=== PATIENT | male | born 1980 | race American Indian/Alaskan Native ===

== ENCOUNTER 2016-07-24 13:11 | Inpatient (IN) | payer OTHER ==
[2016-07-24] MEDS ORDERED: XOPENEX IH ONE ×2 (13:28→14:14)
[2016-07-24] MEDS ORDERED: NACL 0.9% NEBU ONE ×2 (13:34→14:33)
--- NOTE | 2016-07-24 14:54 | History and Physical Report ---
History of Present Illness Chief complaint: I cant breathe . History of present illness: 36 YO Male with Nicotine Depencence, Asthma-moderate persistent presents to ED for evaluation. Pt states that he has experienced shortness of breath for the week with worsening symptoms over the past 8 hours. Pt has been using his inhaler 4-6 times daily without relief. Pt denies fever, chills, CP, Palpitations, NVD, syncope, productive cough, or recent ill contacts Past History Past Medical History: other (asthma, nicotine dependence) Past Surgical History: No surgical history, Other (reviewed) Social history: single, smoking. denies: alcohol abuse, prescription drug abuse , IV drug use Family history: diabetes, hypertension Medications and Allergies Allergies Allergy/AdvReac Type Severity Reaction Status Date / Time No Known Allergies Allergy Verified 07/24/16 13:37 Review of Systems All systems: negative Respiratory: shortness of breath, wheezing Exam - Constitutional Vitals: Temp Pulse Resp BP Pulse Ox 97.5 F L 118 H 16 163/102 96 07/24/16 14:36 07/24/16 14:36 07/24/16 14:36 07/24/16 14:36 07/24/16 14:37 General appearance: Present: mild distress - EENT Eyes: Present: PERRL ENT: hearing intact, clear oral mucosa - Neck Neck: Present: supple, normal ROM - Respiratory Respiratory effort: labored Respiratory: bilateral: diminished - Cardiovascular Heart Sounds: Present: S1 & S2. Absent: rub, click - Extremities Extremities: pulses symmetrical, No edema Peripheral Pulses: within normal limits - Abdominal General gastrointestinal: Present: soft, non-tender, non-distended, normal bowel sounds Male genitourinary: Present: normal - Integumentary Integumentary: Present: clear, warm, dry - Musculoskeletal Musculoskeletal: gait normal, strength equal bilaterally - Psychiatric Psychiatric: appropriate mood/affect, intact judgment & insight - Neurologic Neurologic: CNII-XII intact, moves all extremities Assessment and Plan - Patient Problems (1) Acute respiratory failure Current Visit: Yes Status: Acute Qualifiers: Respiratory failure complication: R Plan to address problem: Supplemental oxygen, nebs, aspiration precautions, supportive care, (2) Asthma exacerbation Current Visit: Yes Status: Acute Plan to address problem: supplemental oxygen, nebs, aspiration precautions, magnesium, steroids, supportive care, (3) Nicotine dependence Current Visit: Yes Status: Acute Qualifiers: Nicotine product type: N Substance use status: S Plan to address problem: Pt counseled, (4) Accelerated hypertension Current Visit: Yes Status: Acute Plan to address problem: monitor bp q shift, supportive care, (5) DVT prophylaxis Current Visit: Yes Status: Acute
[2016-07-24] MEDS ORDERED: MAGNESIUM SULFATE 2GM/50ML 2 GM/50 ML BAG IV ONE (14:55)
[2016-07-24] MEDS ORDERED: DUONEB 0.5 MG-3 MG/3 ML SOLN IH ONE ×2 (14:55→14:56)
[2016-07-24] MEDS ORDERED: NACL 0.9% 1000 ML 1,000 ML IV ONE (14:57)
--- NOTE | 2016-07-24 15:02 | Emergency Department Report ---
ED General Adult HPI - General Chief complaint: Adult Asthma Stated complaint: SOB/CHEST PAIN Source: patient Mode of arrival: Ambulatory Limitations: No Limitations - History of Present Illness Initial comments: Patient admits that he is out of his usual asthma medicine. He states he's never been admitted to the hospital before for asthma. Had persistent wheezing associated with a sensation of chest tightness. He's had an occasional cough but no real sputum production. He denies any fever or chills. He was given 2 Xopenex nebs prior to my encounter. He has persistent wheezing. -: days(s) Location: chest (tightness associated with wheezing only) Radiation: non-radiation Severity scale (0 -10): 0 Consistency: now resolved Improves with: none Worsens with: none Associated Symptoms: denies other symptoms - Related Data Allergies Allergy/AdvReac Type Severity Reaction Status Date / Time No Known Allergies Allergy Verified 07/24/16 13:37 ED Review of Systems ROS: Stated complaint: SOB/CHEST PAIN Other details as noted in HPI Constitutional: denies: chills, fever Eyes: denies: eye pain, eye discharge, vision change ENT: denies: ear pain, throat pain Respiratory: cough, shortness of breath, wheezing Cardiovascular: as per HPI, chest pain. denies: palpitations Endocrine: no symptoms reported Gastrointestinal: denies: abdominal pain, nausea, diarrhea Genitourinary: denies: urgency, dysuria Musculoskeletal: denies: back pain, joint swelling, arthralgia Skin: denies: rash, lesions Neurological: denies: headache, weakness, paresthesias Psychiatric: denies: anxiety, depression Hematological/Lymphatic: denies: easy bleeding, easy bruising ED Past Medical Hx - Past Medical History Hx Asthma: Yes - Surgical History Past Surgical History?: No - Social History Smoking Status: Current Every Day Smoker Substance Use Type: None ED Physical Exam - General Limitations: No Limitations General appearance: alert, in no apparent distress - Head Head exam: Present: atraumatic, normocephalic - Eye Eye exam: Present: normal appearance. Absent: scleral icterus - ENT ENT exam: Present: mucous membranes moist - Neck Neck exam: Present: normal inspection. Absent: tenderness, meningismus - Respiratory Respiratory exam: Present: wheezes, accessory muscle use (mild), prolonged expiratory, other (mild increased work of breathing). Absent: respiratory distress - Cardiovascular Cardiovascular Exam: Present: normal rhythm, tachycardia. Absent: systolic murmur, diastolic murmur, rubs, gallop - GI/Abdominal GI/Abdominal exam: Present: soft, normal bowel sounds. Absent: distended, tenderness, guarding, rebound, rigid - Rectal Rectal exam: Present: deferred - Extremities Exam Extremities exam: Present: normal inspection - Back Exam Back exam: Present: normal inspection - Neurological Exam Neurological exam: Present: alert, oriented X3, CN II-XII intact. Absent: motor sensory deficit - Psychiatric Psychiatric exam: Present: normal affect, normal mood - Skin Skin exam: Present: warm, dry, intact, normal color. Absent: rash ED Course Vital Signs 07/24/16 07/24/16 07/24/16 13:21 13:35 13:51 Temperature 97.5 F L Pulse Rate 118 H Pulse Rate [ 116 H 117 H Anterior Bilateral Throughout] Respiratory 22 Rate Respiratory 20 20 Rate [Anterior Bilateral Throughout] Blood Pressure 147/108 Blood Pressure [Left] O2 Sat by Pulse 97 Oximetry 07/24/16 07/24/16 07/24/16 14:35 14:36 14:37 Temperature 97.5 F L Pulse Rate 118 H Pulse Rate [ 114 H Anterior Bilateral Throughout] Respiratory 16 Rate Respiratory 20 Rate [Anterior Bilateral Throughout] Blood Pressure Blood Pressure 163/102 [Left] O2 Sat by Pulse 96 96 Oximetry 07/24/16 07/24/16 14:59 15:05 Temperature Pulse Rate Pulse Rate [ 125 H 126 H Anterior Bilateral Throughout] Respiratory Rate Respiratory 20 20 Rate [Anterior Bilateral Throughout] Blood Pressure Blood Pressure [Left] O2 Sat by Pulse Oximetry - Reevaluation(s) Reevaluation #1: Patient will be getting Solu-Medrol, mag sulfate. Additional nebs. He has moderate persistent status asthmaticus. I think he will improve. He is referred to Dr. Cummings of the hospitalist service for admission. His progress will be monitored. 07/24/16 15:01 ED Medical Decision Making - EKG Data -: EKG Interpreted by Me EKG shows normal: sinus rhythm, axis, intervals, QRS complexes, ST-T waves Rate: tachycardia - EKG Data Interpretation: no acute changes Critical care attestation.: If time is entered above; I have spent that time in minutes in the direct care of this critically ill patient, excluding procedure time. ED Disposition Clinical Impression: Status asthmaticus Qualifiers: Asthma severity: moderate persistent Qualified Code(s): J45.42 - Moderate persistent asthma with status asthmaticus Hypertension Qualifiers: Hypertension type: unspecified secondary hypertension Qualified Code(s): I15.9 - Secondary hypertension, unspecified; I15 - Secondary hypertension Disposition: OP ADMIT IP TO THIS HOSP Is pt being admited?: Yes Does the pt Need Aspirin: Yes Condition: Stable Instructions: Hypertension (ED) Referrals: PRIMARY CARE, [Primary Care Provider] - 3-5 Days Time of Disposition: 15:31
[2016-07-24] MEDS ORDERED: DULCOLAX PR PRN (15:09)
[2016-07-24] MEDS ORDERED: TYLENOL PO PRN (15:09)
[2016-07-24] MEDS ORDERED: MILK OF MAGNESIA PO PRN (15:09)
[2016-07-24] MEDS ORDERED: ZOFRAN IV PRN (15:09)
[2016-07-24] MEDS ORDERED: BABY ASPIRIN PO ONE (15:32)
[2016-07-24 15:45] LABS: Basophils % (Auto) 0.6 % (0.0-1.8); Hematocrit 43.6 % (35.5-45.6); Hemoglobin 14.2 gm/dl (11.8-15.2); Mean Corpuscular HGB Conc 33 % (32-34); Mean Corpuscular Volume 79 fl (84-94); Platelet Count 187 K/mm3 (140-440); Red Blood Count 5.56 M/mm3 (3.65-5.03); Red Cell Distribution Width 14.8 % (13.2-15.2); White Blood Count 5.8 K/mm3 (4.5-11.0)
[2016-07-24 15:52] LABS: Creatine Kinase MB 12.9 ng/mL (0.0-4.0)
[2016-07-24 15:54] LABS: Alanine Aminotransferase 21 units/L (7-56); Albumin 4.6 g/dL (3.9-5); Albumin/Globulin Ratio 1.2 %; Alkaline Phosphatase 62 units/L (35-129); Anion Gap 21 mmol/L; BUN/Creatinine Ratio 8.88; Blood Urea Nitrogen 8 mg/dL (9-20); Calcium 9.1 mg/dL (8.4-10.2); Carbon Dioxide 26 mmol/L (22-30); Chloride 97.6 mmol/L (98-107); Creatine Kinase 590 units/L (55-170); Glucose 122 mg/dL (75-100); Potassium 3.9 mmol/L (3.6-5.0); Sodium 141 mmol/L (137-145); Total Protein 8.3 g/dL (6.3-8.2)
[2016-07-24 15:55] LABS: Bilirubin,Direct < 0.2 mg/dL (0-0.2); Bilirubin,Indirect 0.4 mg/dL
[2016-07-24 16:03] LABS: INR 1.04 (0.87-1.13); Partial Thromboplastin Time 29.6 Sec. (24.2-36.6)
[2016-07-24] MEDS: ZITHROMAX 500 MG in NACL 0.9% 250ML 250 ML IV SCH ×2 (17:00→20:08)
[2016-07-24 17:01] LABS: Mean Corpuscular Hemoglobin 26 pg (28-32)
--- NOTE | 2016-07-24 17:12 | Admit Criteria Form ---
Admission Criteria Documentation: ASTHMA Clinical Indications for Admission to Inpatient Care (Place 'X' for any and all applicable criteria): Admission is indicated for ANY ONE of the following (1)(2)(3)(4)(5): [ ]I. Absent or markedly diminished breath sounds (silent chest) [ ]II. Oxygen saturation < 92% [ ]III. PaCO2 = / > 42 mm Hg (5.6 kPa) [ ]IV. Peak expiratory flow rate < 40% of predicted or personal best after treatment. [ ]V. Peak expiratory flow rate < 33% of predicted or personal before after treatment [ ]. Change in mental status [ ]VII. Ventilatory support required [ ]VIII. PaO2 < 60 mm Hg (8.0 kPa) [ ]IX. Cyanosis [ ]X. Cardiac dysrhythmia (e.g., bradycardia) [ ]XI. Hemodynamic instability [ ]XII. Radiographic evidence of complication requiring inpatient treatment (e.g., pneumonia, pneumothorax) [X ]XIII. Inpatient admission required rather than observation care (also use Asthma: Observation Care guideline as appropriate) because of ANY ONE of the following: [ ]a) Respiratory finding that is severe or persistent (eg, dyspnea, tachypnea, accessory muscle use) [ ]b) Airflow measurements less than 60% of predicted or personal best that persist (e.g., over 24 hours) or worsen despite treatments [X ]c) Supplemental oxygen or respiratory treatments for over 24 hours that are performable only in acute inpatient setting [ ]d) Other condition, treatment or monitoring requiring inpatient admission. Extended stay beyond goal length of stay may be needed for (26)(27)(28): [ ]a) Severe respiratory failure (23) (29) (30) [ ]b) Secondary causes and complications (25) [ ]c) Status asthmaticus [ ]d) Chronic obstructive asthma [ ]e) Older patients (29) [ ]f) Slow resolution [ ]g) Clinically significant exacerbation of comorbidities (eg, jarret. heart failure, atrial fibrillation) The original [employer] content created by [employer] has been revised. The portions of the content which have been revised are identified through the use of italic text or in bold, and [employer] has neither reviewed nor approved the modified material. All other unmodified content is copyright [employer] Please see references footnoted in the original [facility] edition 2016 Admission Criteria Met: Yes
[2016-07-24 18:48] LABS: ISTAT Base Excess 1; ISTAT HCO3 26.6; ISTAT PCO2 46.3 (35-45); ISTAT PH 7.367 (7.35-7.45); ISTAT PO2 94 (80-105); ISTAT SO2 97; ISTAT TCO2 28
[2016-07-24] MEDS: XOPENEX IH PRN (20:24)
[2016-07-24] MEDS: ATROVENT IH PRN (20:24)
[2016-07-25] MEDS: XOPENEX IH PRN ×2 (00:05→07:47)
[2016-07-25] MEDS: ATROVENT IH PRN ×2 (00:05→07:47)
[2016-07-25] MEDS ORDERED: MAGNESIUM SULFATE 2GM/50ML 2 GM/50 ML BAG IV ONE (00:22)
--- NOTE | 2016-07-25 07:30 | XRay Report ---
AP CHEST: HISTORY: Hypertension There is mild hyperinflation versus good inspiration. AP view of the chest demonstrates a normal mediastinal and cardiac contour with clear lungs and normal bony and soft tissue structures. IMPRESSION: Mild hyperinflation. No acute process.
[2016-07-25] MEDS ORDERED: WATER FOR INJ (PF) 10 ML ONE ×2 (10:39→18:39)
--- NOTE | 2016-07-25 11:29 | Progress Note ---
Assessment and Plan Assessment and plan: 36-year-old man with a history of mild intermittent asthma, which is exacerbated by his seasonal allergies who presented to the ER complaining of shortness of breath over the week and has been progressive and worsening. Lack of relief using his inhalers.He states that inhalers usually "do the trick" for him, and that he has not been hospitalized for asthma since childhood. Acute hypoxic respiratory failure Respiratory therapy notes reviewed, patient was 88% on room air today, continue oxygen supplementation, continue treatment for asthma exacerbation Asthma exacerbation Continue supplemental oxygen nebulizers, steroids, seasonal allergy allergy meds ordered Nicotine dependence Patient has been strongly counseled about the dangers of tobacco abuse, and that his asthma is unlikely to be well controlled to continue smoking, states that he only smokes socially and that he does not need nicotine patch Accelerated hypertension Blood pressure was most likely elevated due to acute illness, blood pressure is trending down. No need for blood pressure meds at this time DVT prophylaxis Early ambulation History Interval history: He continues to have shortness of breath, wheezing and some nonproductive cough. Has severe dyspnea on exertion Hospitalist Physical - Physical exam Narrative exam: General: Unable to speak in full sentences HEENT: MMM, EOMI cardiac: S1-S2 heard lungs: Expiratory wheezing, rhonchorous breath sounds abdomen: soft, nontender, nondistended bowel sounds positive extremities: no edema clubbing or cyanosis Skin: no rash or lesion Neuro: no focal deficit Psych: appropriate behavior and mood, cognition intact - Constitutional Vitals: Temp Pulse Resp BP Pulse Ox 98.1 F 113 H 20 142/96 99 07/25/16 07:53 07/25/16 07:53 07/25/16 07:53 07/25/16 07:53 07/25/16 09:44 General appearance: Present: mild distress Results - Labs CBC & Chem 7: 07/24/16 15:13 07/24/16 15:13 Labs: Laboratory Last Values WBC 5.8 K/mm3 (4.5-11.0) 07/24/16 15:13 RBC 5.56 M/mm3 (3.65-5.03) H 07/24/16 15:13 Hgb 14.2 gm/dl (11.8-15.2) 07/24/16 15:13 Hct 43.6 % (35.5-45.6) 07/24/16 15:13 MCV 79 fl (84-94) L 07/24/16 15:13 MCH 26 pg (28-32) L 07/24/16 15:13 MCHC 33 % (32-34) 07/24/16 15:13 RDW 14.8 % (13.2-15.2) 07/24/16 15:13 Plt Count 187 K/mm3 (140-440) 07/24/16 15:13 Lymph % (Auto) 18.9 % (13.4-35.0) 07/24/16 15:13 [place] % (Auto) 11.6 % (0.0-7.3) H 07/24/16 15:13 Eos % (Auto) 5.0 % (0.0-4.3) H 07/24/16 15:13 Baso % (Auto) 0.6 % (0.0-1.8) 07/24/16 15:13 Lymph # 1.1 K/mm3 (1.2-5.4) L 07/24/16 15:13 [place] # 0.7 K/mm3 (0.0-0.8) 07/24/16 15:13 Eos # 0.3 K/mm3 (0.0-0.4) 07/24/16 15:13 Baso # 0.0 K/mm3 (0.0-0.1) 07/24/16 15:13 Seg Neutrophils % 63.9 % (40.0-70.0) 07/24/16 15:13 Seg Neutrophils # 3.7 K/mm3 (1.8-7.7) 07/24/16 15:13 PT 13.5 Sec. (12.2-14.9) 07/24/16 15:13 INR 1.04 (0.87-1.13) 07/24/16 15:13 APTT 29.6 Sec. (24.2-36.6) 07/24/16 15:13 POC ABG pH 7.367 (7.35-7.45) 07/24/16 18:37 POC ABG pCO2 46.3 (35-45) H 07/24/16 18:37 POC ABG pO2 94 (80-105) 07/24/16 18:37 POC ABG HCO3 26.6 07/24/16 18:37 POC ABG Total CO2 28 07/24/16 18:37 POC ABG O2 Sat 97 07/24/16 18:37 POC ABG Base Excess 1 07/24/16 18:37 FiO2 3 % 07/24/16 18:37 Sodium 141 mmol/L (137-145) 07/24/16 15:13 Potassium 3.9 mmol/L (3.6-5.0) 07/24/16 15:13 Chloride 97.6 mmol/L (98-107) L 07/24/16 15:13 Carbon Dioxide 26 mmol/L (22-30) 07/24/16 15:13 Anion Gap 21 mmol/L 07/24/16 15:13 BUN 8 mg/dL (9-20) L 07/24/16 15:13 Creatinine 0.9 mg/dL (0.8-1.5) 07/24/16 15:13 Estimated GFR > 60 ml/min 07/24/16 15:13 BUN/Creatinine Ratio 8.88 % 07/24/16 15:13 Glucose 122 mg/dL (75-100) H 07/24/16 15:13 Calcium 9.1 mg/dL (8.4-10.2) 07/24/16 15:13 Total Bilirubin 0.60 mg/dL (0.1-1.2) 07/24/16 15:13 Direct Bilirubin < 0.2 mg/dL (0-0.2) 07/24/16 15:13 Indirect Bilirubin 0.4 mg/dL 07/24/16 15:13 AST 19 units/L (5-40) 07/24/16 15:13 ALT 21 units/L (7-56) 07/24/16 15:13 Alkaline Phosphatase 62 units/L (35-129) 07/24/16 15:13 Total Creatine Kinase 590 units/L (55-170) H 07/24/16 15:13 CK-MB (CK-2) 12.9 ng/mL (0.0-4.0) H 07/24/16 15:13 CK-MB (CK-2) Rel Index 2.1 (0-4) 07/24/16 15:13 Troponin T < 0.010 ng/mL (0.00-0.029) 07/24/16 15:13 Total Protein 8.3 g/dL (6.3-8.2) H 07/24/16 15:13 Albumin 4.6 g/dL (3.9-5) 07/24/16 15:13 Albumin/Globulin Ratio 1.2 % 07/24/16 15:13
[2016-07-25] MEDS: XOPENEX IH SCH ×5 (12:13→23:58)
[2016-07-25] MEDS: ATROVENT IH SCH ×5 (12:14→23:58)
[2016-07-25] MEDS: ZITHROMAX PO SCH (15:41)
[2016-07-25] MEDS: CLARITIN PO SCH (15:41)
[2016-07-26] MEDS: XOPENEX IH SCH ×5 (04:03→20:40)
[2016-07-26] MEDS: ATROVENT IH SCH ×5 (04:03→20:39)
[2016-07-26] MEDS ORDERED: WATER FOR INJ (PF) 0 ML ONE (09:31)
[2016-07-26] MEDS: ZITHROMAX PO SCH (09:41)
[2016-07-26] MEDS: CLARITIN PO SCH (09:42)
--- NOTE | 2016-07-26 11:01 | Progress Note ---
Assessment and Plan Assessment and plan: Acute hypoxic respiratory failure Continue oxygen supplementation, continue treatment for asthma exacerbation Asthma exacerbation Continue supplemental oxygen, nebulizers and steroids seasonal allergy allergy meds ordered Nicotine dependence Patient has been strongly counseled about the dangers of tobacco abuse, and that his asthma is unlikely to be well controlled if pt. continues smoking. Accelerated hypertension Blood pressure was most likely elevated due to acute illness, blood pressure is trending down. No need for blood pressure meds at this time DVT prophylaxis Early ambulation History Interval history: No new issues overnight. Patient still with moderate dyspnea. Hospitalist Physical - Constitutional Vitals: Temp Pulse Resp BP Pulse Ox 98.3 F 104 H 18 134/75 100 07/26/16 07:34 07/26/16 09:16 07/26/16 09:16 07/26/16 07:34 07/26/16 09:13 General appearance: Present: no acute distress - EENT Eyes: Present: PERRL, EOM intact ENT: hearing intact, clear oral mucosa, dentition normal - Neck Neck: Present: supple, normal ROM - Respiratory Respiratory effort: normal Respiratory: bilateral: CTA - Cardiovascular Rhythm: regular Heart Sounds: Present: S1 & S2. Absent: gallop, rub - Extremities Extremities: no ischemia, No edema, Full ROM - Abdominal General gastrointestinal: soft, non-tender, non-distended, normal bowel sounds - Integumentary Integumentary: Present: clear, warm, dry - Neurologic Neurologic: CNII-XII intact, moves all extremities Results - Labs CBC & Chem 7: 07/24/16 15:13 07/24/16 15:13 Labs: Laboratory Last Values WBC 5.8 K/mm3 (4.5-11.0) 07/24/16 15:13 RBC 5.56 M/mm3 (3.65-5.03) H 07/24/16 15:13 Hgb 14.2 gm/dl (11.8-15.2) 07/24/16 15:13 Hct 43.6 % (35.5-45.6) 07/24/16 15:13 MCV 79 fl (84-94) L 07/24/16 15:13 MCH 26 pg (28-32) L 07/24/16 15:13 MCHC 33 % (32-34) 07/24/16 15:13 RDW 14.8 % (13.2-15.2) 07/24/16 15:13 Plt Count 187 K/mm3 (140-440) 07/24/16 15:13 Lymph % (Auto) 18.9 % (13.4-35.0) 07/24/16 15:13 [place] % (Auto) 11.6 % (0.0-7.3) H 07/24/16 15:13 Eos % (Auto) 5.0 % (0.0-4.3) H 07/24/16 15:13 Baso % (Auto) 0.6 % (0.0-1.8) 07/24/16 15:13 Lymph # 1.1 K/mm3 (1.2-5.4) L 07/24/16 15:13 [place] # 0.7 K/mm3 (0.0-0.8) 07/24/16 15:13 Eos # 0.3 K/mm3 (0.0-0.4) 07/24/16 15:13 Baso # 0.0 K/mm3 (0.0-0.1) 07/24/16 15:13 Seg Neutrophils % 63.9 % (40.0-70.0) 07/24/16 15:13 Seg Neutrophils # 3.7 K/mm3 (1.8-7.7) 07/24/16 15:13 PT 13.5 Sec. (12.2-14.9) 07/24/16 15:13 INR 1.04 (0.87-1.13) 07/24/16 15:13 APTT 29.6 Sec. (24.2-36.6) 07/24/16 15:13 POC ABG pH 7.367 (7.35-7.45) 07/24/16 18:37 POC ABG pCO2 46.3 (35-45) H 07/24/16 18:37 POC ABG pO2 94 (80-105) 07/24/16 18:37 POC ABG HCO3 26.6 07/24/16 18:37 POC ABG Total CO2 28 07/24/16 18:37 POC ABG O2 Sat 97 07/24/16 18:37 POC ABG Base Excess 1 07/24/16 18:37 FiO2 3 % 07/24/16 18:37 Sodium 141 mmol/L (137-145) 07/24/16 15:13 Potassium 3.9 mmol/L (3.6-5.0) 07/24/16 15:13 Chloride 97.6 mmol/L (98-107) L 07/24/16 15:13 Carbon Dioxide 26 mmol/L (22-30) 07/24/16 15:13 Anion Gap 21 mmol/L 07/24/16 15:13 BUN 8 mg/dL (9-20) L 07/24/16 15:13 Creatinine 0.9 mg/dL (0.8-1.5) 07/24/16 15:13 Estimated GFR > 60 ml/min 07/24/16 15:13 BUN/Creatinine Ratio 8.88 % 07/24/16 15:13 Glucose 122 mg/dL (75-100) H 07/24/16 15:13 Calcium 9.1 mg/dL (8.4-10.2) 07/24/16 15:13 Total Bilirubin 0.60 mg/dL (0.1-1.2) 07/24/16 15:13 Direct Bilirubin < 0.2 mg/dL (0-0.2) 07/24/16 15:13 Indirect Bilirubin 0.4 mg/dL 07/24/16 15:13 AST 19 units/L (5-40) 07/24/16 15:13 ALT 21 units/L (7-56) 07/24/16 15:13 Alkaline Phosphatase 62 units/L (35-129) 07/24/16 15:13 Total Creatine Kinase 590 units/L (55-170) H 07/24/16 15:13 CK-MB (CK-2) 12.9 ng/mL (0.0-4.0) H 07/24/16 15:13 CK-MB (CK-2) Rel Index 2.1 (0-4) 07/24/16 15:13 Troponin T < 0.010 ng/mL (0.00-0.029) 07/24/16 15:13 Total Protein 8.3 g/dL (6.3-8.2) H 07/24/16 15:13 Albumin 4.6 g/dL (3.9-5) 07/24/16 15:13 Albumin/Globulin Ratio 1.2 % 07/24/16 15:13
[2016-07-27] MEDS: ATROVENT IH SCH (00:05)
[2016-07-27] MEDS: XOPENEX IH SCH (00:05)
[2016-07-27] MEDS ORDERED: PROVENTIL IH PRN (00:11)
[2016-07-27] MEDS ORDERED: PROVENTIL IH SCH (08:00)
[2016-07-27] MEDS ORDERED: ATROVENT IH SCH (08:00)
[2016-07-27] MEDS: DUONEB 0.5 MG-3 MG/3 ML SOLN IH SCH ×2 (08:05→13:42)
--- NOTE | 2016-07-27 08:43 | Discharge Summary ---
Providers - Providers Date of Admission: 07/24/16 16:39 Date of discharge: 07/27/16 Attending physician: PAMELA URBAN Primary care physician: IZZY FIGUEROA MD Hospitalization Reason for admission: asthma exac Condition: Stable Hospital course: 36-year-old man with a history of mild intermittent asthma, which is exacerbated by his seasonal allergies who presented to the ER complaining of shortness of breath over the week and has been progressive and worsening. Lack of relief using his inhalers.He states that inhalers usually "do the trick" for him, and that he has not been hospitalized for asthma since childhood. Patient was hospitalized with diagnoses of acute hypoxic respiratory failure and acute asthma exacerbation. Patient was noted to have RA saturation of 88%. Patient was treated with nebulizer treatments, oxygen supplementation and steroids. Dedicated d/c time 32 minutes Disposition: DC-01 TO HOME OR SELFCARE Time spent for discharge: 32 - Discharge Diagnoses (1) Nicotine dependence Status: Acute Qualifiers: Nicotine product type: N Substance use status: S Core Measure Documentation - Palliative Care Palliative Care/ Comfort Measures: Not Applicable - Core Measures Any of the following diagnoses?: none Exam - Constitutional Vitals: Temp Pulse Resp BP Pulse Ox 97.9 F 98 H 20 114/72 94 07/27/16 07:40 07/27/16 08:12 07/27/16 08:12 07/27/16 07:40 07/27/16 08:07 General appearance: Present: no acute distress, well-nourished - EENT Eyes: Present: PERRL ENT: hearing intact, clear oral mucosa - Neck Neck: Present: supple, normal ROM - Respiratory Respiratory effort: normal Respiratory: bilateral: CTA - Cardiovascular Heart Sounds: Present: S1 & S2. Absent: rub, click - Extremities Extremities: pulses symmetrical, No edema Peripheral Pulses: within normal limits - Abdominal General gastrointestinal: Present: soft, non-tender, non-distended, normal bowel sounds Male genitourinary: Present: normal - Integumentary Integumentary: Present: clear, warm, dry - Musculoskeletal Musculoskeletal: gait normal, strength equal bilaterally - Psychiatric Psychiatric: appropriate mood/affect, intact judgment & insight - Neurologic Neurologic: CNII-XII intact, moves all extremities Plan Activity: no restrictions Weight Bearing Status: Full Weight Bearing Diet: regular Follow up with: PRIMARY CARE, [Primary Care Provider] - 3-5 Days Prescriptions: ALBUTEROL NEB's [Proventil 0.083% NEBS] 2.5 mg IH Q4HRT PRN #30 nebu PRN Reason: Shortness Of Breath Azithromycin [Zithromax TAB] 500 mg PO QDAY #5 tablet Ipratropium/Albuterol Sulfate [Duoneb 0.5 mg-3 mg/3 ml Soln] 1 ampul IH TIDRT # 30 ampul.neb Loratadine [Claritin] 10 mg PO QDAY #30 tablet oxyCODONE /ACETAMINOPHEN [Percocet 5/325] 1 tab PO Q4HR #10 tab Prednisone [predniSONE 5 mg (6-Day Pack, 21 Tabs)] 5 mg PO .TAPER #1 tab.ds.pk
[2016-07-27] MEDS ORDERED: WATER FOR INJ (PF) 10 ML ONE (09:19)
[2016-07-27] MEDS: ZITHROMAX PO SCH (09:32)
[2016-07-27] MEDS: CLARITIN PO SCH (09:32)
[2016-07-27 15:46] VITALS: BP 124/71
== END 2016-07-27 17:30 | disposition home or self-care (01) | DRG 189 ==
LOC: ED 13:11 → 3A 16:39
PROVIDERS: ADMIT Internal Medicine; ATTEND Hospitalist
PROC: 4A033R1 Measurement of Arterial Saturation, Peripheral, Percutaneous Approach (ICD-10-PCS; principal; 2016-07-24)
DX: J96.01 Acute respiratory failure with hypoxia (principal); J45.21 Mild intermittent asthma with (acute) exacerbation; I10 Essential (primary) hypertension; F17.210 Nicotine dependence, cigarettes, uncomplicated; Z91.09 Other allergy status, other than to drugs and biological substances; Z71.6 Tobacco abuse counseling; Z83.3 Family history of diabetes mellitus; Z82.49 Family history of ischemic heart disease and other diseases of the circulatory system
CPT/HCPCS: 36415; 71010; 80048; 80074; 82550; 82553; 82803; 84484; 85025; 85610; 85730; 93005; 93010; 94640; 94760; 96374; 96375; J0456; J2920; J2930; J3475; J7030; J7050

== ENCOUNTER 2018-09-19 08:26 | Emergency (ER) | payer OTHER ==
--- NOTE | 2018-09-19 08:56 | Emergency Department Report ---
ED Back Pain/Injury HPI - General Chief Complaint: Back Pain/Injury Stated Complaint: BACK PAIN Time Seen by Provider: 09/19/18 08:53 Source: patient Limitations: No Limitations - History of Present Illness Initial Comments: Patient is a 38-year-old male that presents with complaints of lower back pain. Patient states his back pain started 3 days ago but this morning he bent over and his back pain became excruciating and he has not been able to walk since. Patient states he is not able to walk due to the pain. Patient states the pain is 10 out of 10. Patient was given 100 g of fentanyl by EMS and his pain improved for a few minutes but is back to a 10 on a 10.. Patient denies chest pain shortness of breath. Patient denies dysuria. Patient denies abdominal pain. Patient denies saddle numbness. MD Complaint: back pain, back injury -: Sudden Similar Symptoms Previously: Yes Place: home Radiation: none Severity: severe Severity scale (0 -10): 10 Quality: stabbing Improves With: supine Worsens With: movement Context: bending Associated Symptoms: difficulty walking Treatments Prior to Arrival: prescription analgesics - Related Data Previous Rx's Medication Instructions Recorded Last Taken Type ALBUTEROL NEB's [Proventil 0.083% 2.5 mg IH Q4HRT PRN #30 nebu 07/27/16 Unknown Rx NEBS] Azithromycin [Zithromax TAB] 500 mg PO QDAY #5 tablet 07/27/16 Unknown Rx Ipratropium/Albuterol Sulfate 1 ampul IH TIDRT #30 ampul.neb 07/27/16 Unknown Rx [DUONEB *Not for PRN Use*] Loratadine [Claritin] 10 mg PO QDAY #30 tablet 07/27/16 Unknown Rx Prednisone [predniSONE 5 mg (6-Day 5 mg PO .TAPER #1 tab.ds.pk 07/27/16 Unknown Rx Pack, 21 Tabs)] Cyclobenzaprine [Flexeril] 10 mg PO BID PRN #15 tablet 09/19/18 Unknown Rx methylPREDNISolone [Medrol 4MG 4 mg PO DAILY 6 Days #1 tab.ds.pk 09/19/18 Unknown Rx DOSEPAK (21 tabs)] oxyCODONE /ACETAMINOPHEN [Percocet 1 tab PO Q4HR #10 tab 08/07/19 Unknown Rx 5/325 mg] Allergies Allergy/AdvReac Type Severity Reaction Status Date / Time No Known Allergies Allergy Verified 07/24/16 13:37 ED Review of Systems ROS: Stated complaint: BACK PAIN Other details as noted in HPI Constitutional: denies: chills, fever Eyes: denies: eye pain, eye discharge, vision change ENT: denies: ear pain, throat pain Respiratory: denies: cough, shortness of breath, wheezing Cardiovascular: denies: chest pain, palpitations Endocrine: no symptoms reported Gastrointestinal: denies: abdominal pain, nausea, diarrhea Genitourinary: denies: urgency, dysuria Musculoskeletal: back pain. denies: joint swelling, arthralgia Skin: denies: rash, lesions Neurological: denies: headache, weakness, paresthesias Psychiatric: denies: anxiety, depression Hematological/Lymphatic: denies: easy bleeding, easy bruising ED Past Medical Hx - Past Medical History Previous Medical History?: Yes Hx Hypertension: Yes (current status) Hx Congestive Heart Failure: No Hx Diabetes: No Hx Asthma: Yes Hx COPD: No - Surgical History Past Surgical History?: No - Family History Family history: no significant - Social History Smoking Status: Never Smoker Substance Use Type: None - Medications Home Medications: Home Medications Medication Instructions Recorded Confirmed Last Taken Type ALBUTEROL NEB's [Proventil 0.083% 2.5 mg IH Q4HRT PRN #30 nebu 07/27/16 Unknown Rx NEBS] Azithromycin [Zithromax TAB] 500 mg PO QDAY #5 tablet 07/27/16 Unknown Rx Ipratropium/Albuterol Sulfate 1 ampul IH TIDRT #30 ampul.neb 07/27/16 Unknown Rx [DUONEB *Not for PRN Use*] Loratadine [Claritin] 10 mg PO QDAY #30 tablet 07/27/16 Unknown Rx Prednisone [predniSONE 5 mg (6-Day 5 mg PO .TAPER #1 tab.ds.pk 07/27/16 Unknown Rx Pack, 21 Tabs)] Cyclobenzaprine [Flexeril] 10 mg PO BID PRN #15 tablet 09/19/18 Unknown Rx methylPREDNISolone [Medrol 4MG 4 mg PO DAILY 6 Days #1 tab.ds.pk 09/19/18 Unknown Rx DOSEPAK (21 tabs)] oxyCODONE /ACETAMINOPHEN [Percocet 1 tab PO Q4HR #10 tab 09/19/18 Unknown Rx 5/325 mg] ED Physical Exam - General Limitations: No Limitations General appearance: alert, in no apparent distress - Head Head exam: Present: atraumatic, normocephalic - Eye Eye exam: Present: normal appearance, PERRL Pupils: Present: normal accommodation - ENT ENT exam: Present: mucous membranes moist - Neck Neck exam: Present: normal inspection - Respiratory Respiratory exam: Present: normal lung sounds bilaterally. Absent: respiratory distress, wheezes, rales - Cardiovascular Cardiovascular Exam: Present: regular rate, normal rhythm. Absent: systolic murmur, diastolic murmur, rubs, gallop - GI/Abdominal GI/Abdominal exam: Present: soft, normal bowel sounds. Absent: distended, tenderness, guarding - Rectal Rectal exam: Present: deferred - Extremities Exam Extremities exam: Present: normal inspection, full ROM - Back Exam Back exam: Present: normal inspection, tenderness, paraspinal tenderness, vertebral tenderness - Neurological Exam Neurological exam: Present: alert, oriented X3 - Psychiatric Psychiatric exam: Present: normal affect, normal mood - Skin Skin exam: Present: warm, dry, intact, normal color. Absent: rash ED Course Vital Signs 09/19/18 09/19/18 08:33 11:21 Temperature 97.7 F Pulse Rate 87 94 H Respiratory 16 16 Rate Blood Pressure 159/98 Blood Pressure 148/103 [Left] O2 Sat by Pulse 96 96 Oximetry - Reevaluation(s) Reevaluation #1: Patient states his pain is better. We will ambulate patient 09/19/18 11:30 Reevaluation #2: Patient ambulatory in the ER. Patient sitting up To his bed. Patient states he is in a lot of pain. Patient will be given another milligram of Dilaudid and a Zanaflex muscle relaxer, prior to discharge. Patient is stable for discharge. I discussed all results with patient. Patient agrees with plan of care. Patient will be discharged home. Patient given discharge instructions. Patient voiced understanding of discharge instructions. Patient also given back stretches to start. 09/19/18 12:12 ED Medical Decision Making - Radiology Data Radiology results: report reviewed CT lumbar spine without contrast. CLINICAL HISTORY: Back pain for 2 days FINDINGS: No previous exams available for comparison. There is a transitional vertebrae which represents a symmetrically a sacralized L5 vertebral body. Please note the numbering scheme used on this exam. There is a broad-based left sided at disco protrusion at L4-5 which effaces the left lateral recess and displaces the descending left L5 nerve root at. Furthermore, this finding extends into the left neural foramen with encroachment on the exiting left L4 nerve root sheath. The disc bulge L3-4 appears to minimally flatten the ventral thecal sac at. The neural foramen appear patent at. There is no CT evidence of significant stenosis at L1-2 or L2 -3. There is a focus of sclerosis involving the right anterolateral L1 vertebral body measuring 9 mm transversely at. This finding is nonspecific though may reflect incidental enostosis given the solitary lesion. There is no CT evidence of acute fracture or subluxation involving the lumbar spine. All CT scans at this location are performed using the CT dose reduction for ALARA by means of automated exposure control. IMPRESSION: There is a broad-based left lateral disc protrusion at L4-5 which displaces the descending left L5 nerve root at. Furthermore, this finding extends into the left neural foramen with encroachment on the left L4 nerve root sheath. There is a transitional vertebrae which be considered a symmetrically sacralized L5 vertebral body. - Medical Decision Making Patient is a 38 year-old mellitus emergency room with severe lower back pain. Patient has CT which shows degenerative disc and bulging disc. Patient pain im proved with medications. Patient will be discharged home with pain meds, muscle relaxer and steroids. Patient is stable for discharge. - Differential Diagnosis lumbar back pain. Degenerative disc. Muscle spasm. Critical care attestation.: If time is entered above; I have spent that time in minutes in the direct care of this critically ill patient, excluding procedure time. ED Disposition Clinical Impression: Lumbar degenerative disc disease Lower back pain Qualifiers: Chronicity: acute Back pain laterality: midline Sciatica presence: without sciatica Qualified Code(s): M54.5 - Low back pain Lumbar strain Qualifiers: Encounter type: initial encounter Qualified Code(s): S39.012A - Strain of muscle, fascia and tendon of lower back, initial encounter Disposition: - TO HOME OR SELFCARE Is pt being admited?: No Does the pt Need Aspirin: No Condition: Stable Instructions: Muscle Strain (ED), Low Back Strain (ED), Acute Low Back Pain (ED) Additional Instructions: Patient to follow-up with orthopedist in 2-3 days. Patient to follow-up with physical therapy in 3-5 days. Patient to follow up with primary care in 2-3 days. Patient to return to ER if condition worsens. Patient to take meds as directed. Patient to rest. Prescriptions: Cyclobenzaprine [Flexeril] 10 mg PO BID PRN #15 tablet PRN Reason: Muscle Spasm methylPREDNISolone [Medrol 4MG DOSEPAK (21 tabs)] 4 mg PO DAILY 6 Days #1 tab.ds.pk oxyCODONE /ACETAMINOPHEN [Percocet 5/325 mg] 1 tab PO Q4HR #10 tab Referrals: PIPPA DASILVA MD [Primary Care Provider] - 2-3 Days Time of Disposition: 12:21
[2018-09-19] MEDS ORDERED: DILAUDID IV ONE ×2 (09:30→12:11)
[2018-09-19] MEDS ORDERED: SOLU-Medrol IV ONE (09:30)
--- NOTE | 2018-09-19 10:31 | Cat Scan Report ---
CT lumbar spine without contrast. CLINICAL HISTORY: Back pain for 2 days FINDINGS: No previous exams available for comparison. There is a transitional vertebrae which represe nts a symmetrically a sacralized L5 vertebral body. Please note the numbering scheme used on this exa m. There is a broad-based left sided at disco protrusion at L4-5 which effaces the left lateral recess a nd displaces the descending left L5 nerve root at. Furthermore, this finding extends into the left ne ural foramen with encroachment on the exiting left L4 nerve root sheath. The disc bulge L3-4 appears to minimally flatten the ventral thecal sac at. The neural foramen appear patent at. There is no CT evidence of significant stenosis at L1-2 or L2-3. There is a focus of scle rosis involving the right anterolateral L1 vertebral body measuring 9 mm transversely at. This findin g is nonspecific though may reflect incidental enostosis given the solitary lesion. There is no CT evidence of acute fracture or subluxation involving the lumbar spine. All CT scans at this location are performed using the CT dose reduction for ALARA by means of automated exposure cont rol. IMPRESSION: There is a broad-based left lateral disc protrusion at L4-5 which displaces the descending left L5 ne rve root at. Furthermore, this finding extends into the left neural foramen with encroachment on the left L4 nerve root sheath. There is a transitional vertebrae which be considered a symmetrically sacralized L5 vertebral body. Signer Name: Arsen Salmon MD Signed: 09/19/2018 10:26 AM Workstation Name: [id number]
[2018-09-19 11:21] VITALS: BP 148/103
[2018-09-19] MEDS ORDERED: ZANAFLEX PO ONE (12:11)
== END 2018-09-19 12:49 | disposition home or self-care (01) ==
LOC: ED 08:26
DX: S39.012A Strain of muscle, fascia and tendon of lower back, initial encounter (principal); M51.36 Other intervertebral disc degeneration, lumbar region
CPT/HCPCS: 72131; 96374; 96376; 99283; J1170; J2930